=== PATIENT | male | born 1985 | race Hispanic/Latino ===

== ENCOUNTER → 2019-01-01 | Outpatient (CLI) | payer OTHER | END | disposition home or self-care (01) | LOC: SLP 20:34 → EDUNIT# 01-16 20:30 | PROVIDERS: ATTEND Family Medicine | DX: G47.33 Obstructive sleep apnea (adult) (pediatric) (principal); I10 Essential (primary) hypertension; E11.9 Type 2 diabetes mellitus without complications | CPT/HCPCS: 95810 ==

== ENCOUNTER 2022-06-08 17:50 | Observation (INO) | payer OTHER, MEDICARE ==
[~2022-06-08] VITALS: Ht 180.3 cm; Wt 203.2 kg
[~2022-06-08 17:50] MED LIST: ATOR10 PO; GLIP10TA19 PO; LISI20TA24 PO; METF-446 PO; PIOG30TA70 PO
[2022-06-08 18:38] LABS: BASOPHILS % (AUTO) 0.4 % (0.0-5.0); EOSINOPHILS % (AUTO) 1.8 % (0.0-8.0); HEMATOCRIT 46.6 % (42-54); LYMPHOCYTES % (AUTO) 12.6 % (21.0-51.0); MEAN CORPUSCULAR HEMOGLOBIN 29.3 pg (27.0-33.0); MEAN CORPUSCULAR HGB CONC 32.6 g/dL (32.0-36.0); MONOCYTES % (AUTO) 5.9 % (3.0-13.0); NEUTROPHILS % (AUTO) 78.6 % (40.0-77.0); PLATELET COUNT (AUTO) 284 K/uL (130-400); RED BLOOD CELL COUNT(AUTO) 5.18 MIL/uL (4.50-6.20); RED CELL DISTRIBUTION WIDTH 12.2 % (11.0-15.5); WHITE BLOOD COUNT (AUTO) 13.7 K/uL (4.8-10.8)
[2022-06-08 18:56] LABS: CREATININE 1.1 mg/dL (0.5-1.5); TOTAL PROTEIN, SERUM 7.7 g/dL (6.0-8.3)
[2022-06-08] MEDS ORDERED: 0.9%NACL 1000ML 1,000 ML IV ONE (19:00)
[2022-06-08 19:13] LABS: POTASSIUM 6.5 mmol/L (3.5-5.1)
[2022-06-08 20:06] LABS: POTASSIUM 6.7 mmol/L (3.5-5.1)
[2022-06-08] MEDS ORDERED: INSULIN HUMULIN R 100 UNIT/ML 3ML IV ONE (20:30)
[2022-06-08] MEDS ORDERED: KAYEXALATE 15GM/60ML PO ONE (20:30)
[2022-06-08] MEDS ORDERED: DEXTROSE 50%-WATER 50 ML DISP.SYRIN IV ONE (20:30)
[2022-06-08] MEDS ORDERED: CALCIUM GLUC 1GM/10ML VIAL IV STA (20:30)
[2022-06-08] MEDS ORDERED: SODIUM BICARB 50MEQ 50ML VIAL IV STA (20:30)
[2022-06-08] MEDS ORDERED: LABETALOL 20MG SYG IV PRN (21:30)
[2022-06-08] MEDS ORDERED: TEMAZEPAM 15 MG CAPSULE PO PRN (21:30)
[2022-06-08] MEDS ORDERED: HYDROCODONE/ACETAMINOPHEN 5/325 MG TAB PO PRN (21:30)
[2022-06-08] MEDS ORDERED: CLONIDINE HCL 0.1 MG TABLET PO PRN (21:30)
[2022-06-08] MEDS ORDERED: HYDRALAZINE 20MG/ML VIAL IV PRN (21:30)
[2022-06-08] MEDS ORDERED: ONDANSETRON 4MG INJ IVP PRN (21:30)
[2022-06-08] MEDS: 0.9%NACL 1000ML 1,000 ML IV SCH (21:53)
[2022-06-08] MEDS: ZOSYN 3.375GM +NS 50ML IV SCH (21:53)
[2022-06-09] MEDS: ZOSYN 3.375GM +NS 50ML IV SCH ×3 (05:02→20:44)
[2022-06-09 05:20] VITALS: BP 132/86
[2022-06-09] MEDS: 0.9%NACL 1000ML 1,000 ML IV SCH ×2 (05:30→14:02)
[2022-06-09 06:27] LABS: HEMATOCRIT 42.2 % (42-54); MEAN CORPUSCULAR HEMOGLOBIN 29.2 pg (27.0-33.0); MEAN CORPUSCULAR HGB CONC 33.2 g/dL (32.0-36.0); MEAN CORPUSCULAR VOLUME 88.1 fL (79-99); RED BLOOD CELL COUNT(AUTO) 4.79 MIL/uL (4.50-6.20); RED CELL DISTRIBUTION WIDTH 12.3 % (11.0-15.5); WHITE BLOOD COUNT (AUTO) 12.7 K/uL (4.8-10.8)
[2022-06-09 06:48] LABS: MAGNESIUM 1.6 mg/dL (1.80-2.40); PHOSPHORUS 4.7 mg/dL (2.5-4.9)
[2022-06-09] MEDS: INSULIN HUMULIN R 100 UNIT/ML 3ML SQ SCH ×4 (07:04→21:14)
[2022-06-09 08:00] VITALS: BP 136/61
[2022-06-09] MEDS ORDERED: ENOXAPARIN SODIUM 40 MG/0.4 ML SYRINGE SQ SCH (09:00)
[2022-06-09] MEDS: ASPIRIN 81MG CHEW TAB PO SCH (09:58)
[2022-06-09] MEDS ORDERED: VANCOMYCIN PROTOCOL PER PHARMACY IV SCH (11:00)
[2022-06-09 11:51] VITALS: BP 129/61
[2022-06-09] MEDS ORDERED: FERS325 PO (11:55)
[2022-06-09] MEDS ORDERED: ATOR10 PO (11:55)
[2022-06-09] MEDS ORDERED: PIND10TA2 PO (11:55)
[2022-06-09] MEDS ORDERED: METF-446 PO (11:55)
[2022-06-09] MEDS ORDERED: LISI40TA9 PO (11:55)
[2022-06-09] MEDS ORDERED: RIVA2.5T PO (11:55)
[2022-06-09] MEDS ORDERED: AEC81 PO (11:55)
[2022-06-09] MEDS ORDERED: PIOG30TA70 PO (11:55)
[2022-06-09] MEDS ORDERED: SERT-440 PO (11:55)
[2022-06-09] MEDS ORDERED: VANCOMYCIN 1.5GM/NS 250ML IV SCH ×2 (14:00)
[2022-06-09] MEDS ORDERED: COMPOUND IV REFRIGERATED 1 EACH IVSOLN MISC PRN (15:00)
[2022-06-09 16:00] VITALS: BP 135/110
[2022-06-09 18:03] LABS: APPEARANCE,URINE CLEAR (CLEAR); BILIRUBIN,URINE NEGATIVE (NEGATIVE); COLOR,URINE LIGHT-YELLOW (YELLOW); GLUCOSE, URINE (UA) NEGATIVE (NEGATIVE); KETONES,URINE NEGATIVE (NEGATIVE); LEUKOCYTE ESTERASE ,URINE NEGATIVE Leu/uL (NEGATIVE); NITRATE,URINE NEGATIVE (NEGATIVE); OCCULT BLOOD,URINE NEGATIVE (NEGATIVE); PH,URINE 7.5 (5.0-8.0); PROTEIN,URINE 30 mg/dL (NEGATIVE); UROBILINOGEN,URINE 0.2 mg/dL (0.2-1.0)
[2022-06-09 18:06] LABS: AMPHET/METH SCREEN,URINE NEGATIVE (NEGATIVE); BARBITURATE SCREEN, URINE NEGATIVE (NEGATIVE); BENZODIAZEPINES SCREEN,URINE NEGATIVE (NEGATIVE); CANNABINOID SCREEN,URINE NEGATIVE (NEGATIVE); COCAINE SCREEN,URINE NEGATIVE (NEGATIVE); OPIATE SCREEN,URINE NEGATIVE (NEGATIVE); PHENCYCLIDINE SCREEN,URINE NEGATIVE (NEGATIVE)
[2022-06-09 18:16] LABS: BACTERIA,URINE RARE /HPF (None Seen); SQUAMOUS EPITHELIAL CELL,UR RARE /HPF (0-2)
[2022-06-09] MEDS: RIVAROXABAN 2.5 MG TABLET PO SCH (20:43)
[2022-06-09] MEDS: PINDOLOL 5 MG TAB PO SCH (20:44)
[2022-06-09] MEDS ORDERED: ATORVASTATIN 10 MG TABLET PO SCH (21:00)
[2022-06-09] MEDS ORDERED: SIMVASTATIN 20 MG TABLET PO SCH (21:00)
[2022-06-09 21:17] VITALS: BP 122/49
[2022-06-09 23:43] VITALS: BP 121/54
[2022-06-10 04:13] VITALS: BP 142/68
[2022-06-10 05:26] LABS: HEMATOCRIT 43.3 % (42-54); MEAN CORPUSCULAR HEMOGLOBIN 29.1 pg (27.0-33.0); MEAN CORPUSCULAR HGB CONC 32.1 g/dL (32.0-36.0); MEAN CORPUSCULAR VOLUME 90.8 fL (79-99); RED BLOOD CELL COUNT(AUTO) 4.77 MIL/uL (4.50-6.20); RED CELL DISTRIBUTION WIDTH 12.3 % (11.0-15.5); WHITE BLOOD COUNT (AUTO) 11.6 K/uL (4.8-10.8)
[2022-06-10 05:46] LABS: ALBUMIN 2.7 g/dL (3.5-5.0); CREATININE 0.9 mg/dL (0.5-1.5); MAGNESIUM 1.8 mg/dL (1.80-2.40); POTASSIUM 4.5 mmol/L (3.5-5.1); TOTAL PROTEIN, SERUM 6.9 g/dL (6.0-8.3)
[2022-06-10] MEDS: ZOSYN 3.375GM +NS 50ML IV SCH ×2 (06:05→12:29)
[2022-06-10] MEDS: INSULIN HUMULIN R 100 UNIT/ML 3ML SQ SCH ×2 (06:07→12:03)
[2022-06-10 08:00] VITALS: BP 172/78
[2022-06-10] MEDS ORDERED: LISINOPRIL 40 MG TABLET PO SCH (09:00)
[2022-06-10] MEDS ORDERED: ASPIRIN 81 MG EC TAB PO SCH (09:00)
[2022-06-10] MEDS ORDERED: SERTRALINE HCL 50 MG TABLET PO SCH (09:00)
[2022-06-10] MEDS ORDERED: FERROUS SULFATE 325 MG TABLET.DR PO SCH (09:00)
[2022-06-10] MEDS: ASPIRIN 81MG CHEW TAB PO SCH (09:23)
[2022-06-10] MEDS: PINDOLOL 5 MG TAB PO SCH (09:23)
[2022-06-10] MEDS: RIVAROXABAN 2.5 MG TABLET PO SCH (09:23)
[2022-06-10 12:00] VITALS: BP 152/91
[2022-06-10] MEDS ORDERED: AMOX-426 PO (13:05)
== END 2022-06-10 15:25 | disposition home or self-care (01) ==
LOC: EDH 17:50 → EDHIP 21:01 → 4CH 06-09 05:30
PROVIDERS: ADMIT Internal Medicine Critical Care Medicine; ATTEND Internal Medicine Critical Care Medicine
DX: I16.0 Hypertensive urgency (principal); Z20.822 Contact with and (suspected) exposure to COVID-19; E87.5 Hyperkalemia; D72.829 Elevated white blood cell count, unspecified; E11.65 Type 2 diabetes mellitus with hyperglycemia; E78.5 Hyperlipidemia, unspecified; I73.9 Peripheral vascular disease, unspecified; G47.33 Obstructive sleep apnea (adult) (pediatric); E86.0 Dehydration; E66.01 Morbid (severe) obesity due to excess calories; E11.621 Type 2 diabetes mellitus with foot ulcer; H54.8 Legal blindness, as defined in USA; E11.52 Type 2 diabetes mellitus with diabetic peripheral angiopathy with gangrene; E11.42 Type 2 diabetes mellitus with diabetic polyneuropathy; E83.42 Hypomagnesemia; E87.6 Hypokalemia; E78.00 Pure hypercholesterolemia, unspecified; F41.0 Panic disorder [episodic paroxysmal anxiety]; I10 Essential (primary) hypertension; I25.2 Old myocardial infarction; L60.0 Ingrowing nail; L97.509 Non-pressure chronic ulcer of other part of unspecified foot with unspecified severity; M86.9 Osteomyelitis, unspecified; Z79.899 Other long term (current) drug therapy; Z98.890 Other specified postprocedural states; Z68.44 Body mass index [BMI] 60.0-69.9, adult; Z79.4 Long term (current) use of insulin; Z79.84 Long term (current) use of oral hypoglycemic drugs; Z86.718 Personal history of other venous thrombosis and embolism
CPT/HCPCS: 96361; 96365; 96366 ×4; 96375; 99285; 84484; 84132; 80053 ×2; 85025; 85651; 87804 ×2; 82010; 36415 ×3; 87635; 73630; 93970; 93005; 96372 ×2; 83735 ×2; 84100; 80061; 80048; 80305; 85027 ×2; 87070; 87076; 82948 ×6; 81001; 93306; 93925; 73718; 94660 ×2; 80202; 87040 ×2; G0378 ×41; C9803; J7030; J7070; J0610; J2543 ×6; J1815 ×4; J3370; J1650; J7050; J3490

== ENCOUNTER 2023-01-26 18:50 | Emergency (ER) | payer OTHER, MEDICARE ==
[~2023-01-26] VITALS: Ht 180.3 cm; Wt 190.5 kg
[~2023-01-26 18:50] MED LIST changes: +AEC81 PO; +AMOX-426 PO; +FERS325 PO; -GLIP10TA19 PO; -LISI20TA24 PO; +LISI40TA9 PO; +PIND10TA2 PO; +RIVA2.5T PO; +SERT-440 PO
[2023-01-26 20:51] LABS: BASOPHILS % (AUTO) 0.4 % (0.0-5.0); EOSINOPHILS % (AUTO) 2.1 % (0.0-8.0); HEMATOCRIT 40.1 % (42-54); LYMPHOCYTES % (AUTO) 11.4 % (21.0-51.0); MEAN CORPUSCULAR HGB CONC 30.4 g/dL (32.0-36.0); MEAN CORPUSCULAR VOLUME 85.5 fL (79-99); MONOCYTES % (AUTO) 5.7 % (3.0-13.0); NEUTROPHILS % (AUTO) 79.9 % (40.0-77.0); PLATELET COUNT (AUTO) 406 K/uL (130-400); RED BLOOD CELL COUNT(AUTO) 4.69 MIL/uL (4.50-6.20); RED CELL DISTRIBUTION WIDTH 14.2 % (11.0-15.5); WHITE BLOOD COUNT (AUTO) 12.6 K/uL (4.8-10.8)
[2023-01-26 21:14] LABS: ALBUMIN 2.7 g/dL (3.5-5.0); POTASSIUM 4.5 mmol/L (3.5-5.1); TOTAL PROTEIN, SERUM 8.4 g/dL (6.0-8.3)
[2023-01-26] MEDS ORDERED: ZOSYN 3.375GM +NS 50ML IVPB ONE (23:00)
[2023-01-26] MEDS ORDERED: SULF1TAB89 PO (23:40)
[2023-01-26 23:56] VITALS: BP 152/73; PULSE 89; RESP 18; O2SAT 96
== END 2023-01-27 01:41 | disposition home or self-care (01) ==
LOC: EDH 18:50
DX: L03.116 Cellulitis of left lower limb (principal); L03.115 Cellulitis of right lower limb; E11.621 Type 2 diabetes mellitus with foot ulcer; I10 Essential (primary) hypertension; E11.9 Type 2 diabetes mellitus without complications; F32.A Depression, unspecified; E66.01 Morbid (severe) obesity due to excess calories; E78.00 Pure hypercholesterolemia, unspecified; Z79.01 Long term (current) use of anticoagulants; Z79.82 Long term (current) use of aspirin; Z79.84 Long term (current) use of oral hypoglycemic drugs; Z79.899 Other long term (current) drug therapy
CPT/HCPCS: 99285; 93970; 80053; 85025; 87040 ×2; 87076 ×2; 87077 ×4; 87186 ×4; 83605; 36415; 87070 ×2; 96365; J2543

== ENCOUNTER 2023-02-15 08:41 | Emergency (ER) | payer OTHER, MEDICARE ==
[~2023-02-15] VITALS: Ht 175.3 cm; Wt 188.2 kg
[~2023-02-15 08:41] MED LIST changes: +SULF1TAB89 PO
[2023-02-15] MEDS ORDERED: CLIN-141 PO (09:16)
[2023-02-15] MEDS ORDERED: BACITRACIN 1 EACH PACKET TP ONE (09:30)
[2023-02-15] MEDS ORDERED: TETANUS/DIPHTHERIA TOXOID [ADULT] 0.5 ML VIAL IM ONE (09:30)
[2023-02-15 09:46] LABS: BASOPHILS # (AUTO) 0.05 K/uL (0.00-0.20); BASOPHILS % (AUTO) 0.4 % (0.0-5.0); EOSINOPHILS # (AUTO) 0.28 K/uL (0.00-0.70); EOSINOPHILS % (AUTO) 2.1 % (0.0-8.0); HEMATOCRIT 36.7 % (42-54); IMMATURE GRANULOCYTE ABSOLUTE 0.06 K/uL (0-1); LYMPHOCYTES # (AUTO) 1.4 K/uL (1.0-4.8); LYMPHOCYTES % (AUTO) 10.6 % (21.0-51.0); MEAN CORPUSCULAR HEMOGLOBIN 25.5 pg (27.0-33.0); MEAN CORPUSCULAR HGB CONC 29.7 g/dL (32.0-36.0); MEAN CORPUSCULAR VOLUME 85.9 fL (79-99); NEUTROPHILS # (AUTO) 10.8 K/uL (1.8-7.7); NEUTROPHILS % (AUTO) 79.5 % (40.0-77.0); PLATELET COUNT (AUTO) 365 K/uL (130-400); RED BLOOD CELL COUNT(AUTO) 4.27 MIL/uL (4.50-6.20); RED CELL DISTRIBUTION WIDTH 14.6 % (11.0-15.5); WHITE BLOOD COUNT (AUTO) 13.6 K/uL (4.8-10.8)
[2023-02-15 09:58] LABS: CREATININE 1.2 mg/dL (0.5-1.5); POTASSIUM 5.3 mmol/L (3.5-5.1)
[2023-02-15 10:02] LABS: ALBUMIN 2.3 g/dL (3.5-5.0); BILIRUBIN,TOTAL 0.3 mg/dL (0.2-1.0); TOTAL PROTEIN, SERUM 7.6 g/dL (6.0-8.3)
[2023-02-15] MEDS ORDERED: KAYEXALATE 15GM/60ML PO ONE (10:30)
[2023-02-15 10:31] VITALS: BP 132/80; PULSE 87; RESP 20; O2SAT 97
== END 2023-02-15 10:33 | disposition home or self-care (01) ==
LOC: EDH 08:41
DX: S90.811A Abrasion, right foot, initial encounter (principal); E11.9 Type 2 diabetes mellitus without complications; E78.00 Pure hypercholesterolemia, unspecified; I10 Essential (primary) hypertension; E66.01 Morbid (severe) obesity due to excess calories; Z79.01 Long term (current) use of anticoagulants; Z79.82 Long term (current) use of aspirin; Z79.84 Long term (current) use of oral hypoglycemic drugs; Z79.899 Other long term (current) drug therapy; X58.XXXA Exposure to other specified factors, initial encounter; Y93.89 Activity, other specified; Y92.89 Other specified places as the place of occurrence of the external cause; Y99.8 Other external cause status
CPT/HCPCS: 36415; 80053; 85025; 90471; 90714